=== PATIENT | female | born 1975 | race Caucasian/White ===

== ENCOUNTER 2025-05-03 10:42 | Emergency (ER) | payer BC, SELFPAY ==
[2025-05-03] VITALS (10 sets, daily range): BP systolic 130–161; BP diastolic 75–97; PULSE 65–80; RESP 15–19; TEMP 36.6; O2SAT 98–100
[2025-05-03] MEDS: FAMOTIDINE 20 MG/2 ML VIAL IV PUSH (10:59)
[2025-05-03] MEDS: EPINEPHrine HCL INJ 1 MG/ML AMPUL 0.3 MG IM (11:03)
[2025-05-03] MEDS: SODIUM CHLORIDE 0.9% IV 100 ML 400 ML (11:05)
--- OUTSIDE RECORDS SUMMARY | 2025-05-03 11:42 | XMS_ITS | Clinical Summary ---
Author Organization [facility] Address [address] [address] Phone Care Team Providers Care Group Director Name Role Phone Chloe Hyatt MD Primary Care Provider [phone] Allergies Active Allergy Reactions Criticality Noted Date Comments Sulfanilamide Hives Medium Medications levothyroxine (SYNTHROID) 75 mcg tabletIndications:A cquired hypothyroidism Take 1 tablet (75 mcg total) by mouth daily 90 tablet 1 5 05/16/20 25 Active Active Problems Problem Noted Date Diagnosed Date Encounter for screening for malignant neoplasm o f colon 07/14/2023 Elevated lipoprotein(a) 11/13/2020 Overview (11/13/2020): 2019 CAC = 0 Assessment & Plan (11/13/2020 10:38 AM CDT): LPa 104 with family hx premature coronary artery disease in her father. She does not want to take statins. She will change to as close to a vegan diet as she can manage. Recheck lipids 3 months. Vitamin D insufficiency 10/30/2019 Assessment & Plan (11/13/2020 10:34 AM CDT): Check Vitamin D level on current child's supplement dose. Assessment & Plan (10/30/2019 7:29 AM CDT): Check vitamin-D on her current supplement level. Routine general medical exam ination at a [facility] care facility 12/16/2016 Assessment & Plan (11/13/2020 10:34 AM CDT): Reviewed previous labs and diagnostic test results. Chronic medical problems evaluated and management plans discussed with patient. Prescription medications, supplements, vitamins and immunizations reviewed. Discussed healthy diet for disease prevention. Recommended moving towards a plant based diet. Limit alcohol to no more than 7 drinks per week. Discussed importance of scheduling recommended screening tests. Discussed importance of regular physical examinations for health maintenance. Assessment & Plan (10/30/2019 7:24 AM CDT): ASCVD 10 year risk very low at 0.4% Reviewed previous labs and diagnostic test results. Chronic medical problems evaluated and management plans discussed with patient. Prescription medications, supplements, vitamins and immunizations reviewed. Wear seatbelts. Use sunscreen. Discussed healthy diet for disease prevention. Recommended moving towards a plant based diet. Limit alcohol to no more than 1 drink per day. Discussed importance of scheduling recommended screening tests. Discussed importance of regular physical examinations for health maintenance. Assessment & Plan (02/15/2018 6:49 AM CDT): patient presents for annual exam ekg noted labs pending get copy of living will to pcp encourage annual wwe mammogram and every other year dexa encourage follow gi for scheduled colonoscopy and egd if indicated encourage annual eye exam and dental minimum 2 times year encourage balance nutrition utilizing platemethod.gov and exercise 5 days a week. See orders Assessment & Plan (12/22/2016 7:43 AM CDT): patient presents for annual exam ekg noted labs pending get copy of living will to pcp encourage annual wwe mammogram and every other year dexa encourage follow gi for scheduled colonoscopy and egd if indicated encourage annual eye exam and dental minimum 2 times year encourage balance nutrition utilizing platemethod.gov and exercise 5 days a week. Family history of heart disease 12/16/2016 Overview (10/30/2019): Father fatal mi 67 yo. [place] in his 50s Mother fatal mi 66 yo mgf fatal mi age 35 yo Assessment & Plan (10/30/2019 7:48 AM CDT): Check LPa. Assessment & Plan (02/02/2018 10:42 AM CDT): Father fatal mi 67 yo Mother fatal mi 66 yo mgf fatal mi age 35 yo Assessment & Plan (12/16/2016 11:34 AM CDT): BMI Follow-up includes: nutrition counseling, exercise counseling and education provided. ekg stable Reviewed all diagnostics surgery referrals laboratory Answer all questions Hypothyroidism 12/12/2015 Overview (08/20/2016): Hypothyroidism, unspecified type Assessment & Plan (02/15/2025 9:12 AM CDT): Chronic, stable. Currently on Synthroid 75 mcg tab daily Repeat TSH level due today Continue current dosage until lab returns Orders: levothyroxine (SYNTHROID) 75 mcg tablet; Take 1 tablet (75 mcg total) by mouth daily TSH; Future Assessment & Plan (10/30/2019 7:23 AM CDT): Clinically euthyroid. Continue current levothyroxine dose. Check TSH today. Assessment & Plan (02/15/2018 6:49 AM CDT): Continue current medical management Education to stop medication can contribute to serious consequences and subsequent health issues Labs pending Call for change vision tremors fatigue malaise dry skin or mood swing See orders Assessment & Plan (12/22/2016 7:44 AM CDT): Continue current medical management Education to stop medication can contribute to serious consequences and subsequent health issues Labs pending Call for change vision tremors fatigue malaise dry skin or mood swing Resolved Problems Problem Noted Date Diagnosed Date Resolved Date Vegan diet 07/07/2023 02/15/2025 Palpitations 11/13/2020 07/03/2022 Assessment & Plan (11/13/2020 10:55 AM CDT): Occasional palpitation. EKG today shows sinus bradycardia no ectopics. Discussed that more than 2 alcoholic beverages per day is a trigger for palpitations. History of abnormal cervical Pap smear 02/02/2018 10/30/2019 Overview (02/02/2018): Dr Afshin BLAIR 2014 negative Assessment & Plan (02/15/2018 6:49 AM CDT): Reviewed all diagnostics surgery referrals laboratory Answer all questions Fu Dr Pepe BMI 23.0-23.9, adult 12/16/2016 023 Assessment & Plan (11/13/2020 10:18 AM CDT): BMI Follow-up includes: nutrition counseling, exercise counseling and education provided. Assessment & Plan (10/30/2019 7:30 AM CDT): BMI Follow-up includes: nutrition counseling, exercise counseling and education provided. Assessment & Plan (02/15/2018 6:49 AM CDT): BMI Follow-up includes: nutrition counseling, exercise counseling and education provided. Assessment & Plan (12/16/2016 11:22 AM CDT): BMI Follow-up includes: nutrition counseling, exercise counseling and education provided. Family history of breast can cer gene mutation in first degree relative 12/16/2016 02/02/2018 Assessment & Plan (12/16/2016 11:32 AM CDT): Sister chek2 age 47 yo Reviewed all diagnostics surgery referrals laboratory Answer all questions sbe today Benign cyst of breast 12/12/20152019 Overview (08/20/2016): Benign breast cyst in female, right Assessment & Plan (02/15/2018 6:49 AM CDT): Reviewed all diagnostics surgery referrals laboratory Answer all questions sbe today Assessment & Plan (12/22/2016 7:44 AM CDT): sbe Education for frequent sbe Mammogram annual and prn if needed Impacted cerumen 06/13/2012 02/02/2018 Overview (08/20/2016): Impacted cerumen Atopic rhinitis 06/13/2012 10/30/2019 Overview (08/20/2016): Allergic rhinitis, cause unspecified Assessment & Plan (02/15/2018 6:48 AM CDT): use nasal saline agressively q4h take otc antihistamine for symptomatic days. Use nasal steroid daily for prevention and use analgesic for comfort rx sent to pharmacy education for risk benefits side affects if no improvement or exacerbation return ov or call See orders Assessment & Plan (12/22/2016 7:45 AM CDT): cool mist humidifer in bedroom hs use nasal saline agressively q4h take otc antihistamine, nasal steroid and analgesic for comfort rx sent to pharmacy education for risk benefits side affects if no improvement or exacerbation return ov or call Constipation 06/13/2012 02/15/2025 Overview (08/21/2016): Unspecified constipation Assessment & Plan (10/30/2019 7:53 AM CDT): Managed with increased fluid intake and fiber Assessment & Plan (02/15/2018 6:48 AM CDT): Increase water hydration, fruits, vegetables walking. use otc miralax nightly hold for diarrhea. report any changes bleeding pain po intolerance if no improvement consult gi See orders Assessment & Plan (12/22/2016 7:44 AM CDT): Increase water hydration, fruits, vegetables walking. use otc miralax nightly hold for diarrhea. report any changes bleeding pain po intolerance if no improvement consult gi Encounters Date Type Department Care Team Description 02/15/2025 8:30 AM CDT Office Visit [facility] Primary Care at [address] [id number] Chloe Hyatt MD Annual physical exam (Primary Dx); Acquired hypothyroidism; Need for hepatitis B screening test; Vitamin D insufficiency 02/01/2025 Results Follow-Up [facility] Care at [address] [id number] Chloe Hyatt MD Screening Mammogram Bilateral W Artie from Last 3 Months Immunizations Immunization Administration Dates Next Due Influenza, Quadrivalent, Spl it, Preservative Free, Intramuscular 04/23/2021 Influenza, Trivalent, High D ose, Split, Preservative Free, Intramuscular 02/14/2014 Influenza, Trivalent, IM (MDV) 03/08/2012 Influenza, Trivalent, Preser vative Free, Intramuscular 03/13/2024 Pfizer SARS-CoV-2 Monovalent Vaccination (12+ Yrs) PURPLE 09/03/2020,08/13/2020 Tdap 06/14/2020,06/14/2010,05/27/2010 Surgical History Surgery Date Site/Laterality Comments BREAST BIOPSY 05/17/1999 - 05/16/2000 Breast biopsy CERVICAL BIOPSY W/ LOOP ELECTRODE EXCISION WISDOM TOOTH EXTRACTION BREAST BIOPSY benign BREAST BIOPSY 10/09/2015 Right COLONOSCOPY 11/02/2023 Medical History Medical History Date Comments Genetic screening 10/2017 negative for m utation for breast cancer Hypothyroid Abnormal Pap smear of cervix Breast cyst Constipation Allergic rhinitis Agatston coronary artery lidia cium score less than 100 12/2019 coronary calcium score = 0 Family History Medical History Relation Name Comments Diabetes Father Gout Father Heart attack Father Heart attack Maternal Grandfather Thrombosis Maternal Grandmother Atrial fibrillation Mother Coronary artery disease Mother Nadege nary artery disease; Heart attack Mother Hyperlipidemia Mother Hyperlipidemi a; Hypertension Mother Hypertension; Hypothyroidism Mother Hypothyroidis m; Osteoporosis Mother Osteoporosis; Pulmonary fibrosis Paternal Grandfather Breast cancer Paternal Grandmother Hypothyroidism Sister 1 Hypothyroidis m; Breast cancer Sister 2 Relation Name Status Comments Father Maternal Grandfather Maternal Grandmother Mother Paternal Grandfather Paternal Grandmother Sister 1 Alive Sister 2 Social History Tobacco Use Types Packs/Day Years Used Date Smoking Tobacco: Former Cigarettes 1 5 1 997 - 2001 Smokeless Tobacco: Never Tobacco Cessation:Counseling Given: Not Answered Comments:Smoking History Packs/day: 1 Packs Alcohol Use Standard Drinks/Week Comments Yes 4 (1 standard drink = 0.6 oz pur e alcohol) 8 glasses wine PHQ-2 Answer Date Recorded PHQ-2 Total Score (If total score is 3 or more points, staff should administer the PHQ-9) 0 02/15/2025 PHQ-9 Answer Date Recorded PHQ-9 Total Score 1 02/15/2025 AUDIT-C Answer Date Recorded Q1: How often do you have a drink containing alcohol? 4 or more times a week 02/15/2025 Q2: How many drinks containi ng alcohol do you have on a typical day when you are drinking? 1 or 2 Q3: How often do you have si x or more drinks on one occasion? Monthly 02/15/2025 Personal Safety Answer Date Recorded Have you ever been in or are you currently in a harmful physical or emotional relationship or is someone making you feel afraid or unsafe? 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 on file Not on file Not on file Obstetrics History Para Term AB IAB SAB Ectopic Multiple Livin g Live Births 2 2 Date Outcome GA Total Labor Labor/2nd/3rd Weight Sex Type Anes PTL Bibi A1 A5 Name Clin Last Filed Vital Signs Vital Sign Reading Time Taken Comments Blood Pressure 110/76 02/15/2025 8:37 AM CDT Pulse 72 02/15/2025 8:37 AM CDT Temperature 36.6 C (97.8 F) 02/15/2025 8:37 AM CDT Respiratory Rate 16 02/15/2025 8:37 AM CDT Oxygen Saturation 97% 02/15/2025 8:37 AM CDT Inhaled Oxygen Concentration - - Weight 62.2 kg (137 lb 1.6 oz) 02/15/2025 8:37 A M CDT Height 161.9 cm (5' 3.75) 02/15/2025 8:37 AM CD T Body Mass Index 23.72 02/15/2025 8:37 AM CDT Plan of Treatment Health Maintenance Due Date Last Done Comments Hepatitis B Screening 08/21/1993 Covid-19 Vaccine ( season) 2025 03/13/2024, 04/23/2021, 09/03/2020, Additional history exists Influenza Vaccine (#1) 2025 , 04/23/2021, 02/14/2014, Additional history exists Breast Cancer Screening-Mammogram 01/30/2026 01/30/2025, 10/14/2023, 10/14/2023, Additional history exists Depression Screening 02/15/2026 02/15/2025, 02/15/2025, 07/07/2023, Additional history exists Regular Well Visit/Exam 18-64 02/15/2026 02/15/2025, 07/07/2023, 07/03/2022, Additional history exists Cervical Cancer Screening 08/16/20272024, 11/08/2020, 07/06/2019, Additional history exists DTaP/Tdap/Td Vaccine (4 - Td or Tdap) 06/14/2030 06/14/2020, 06/14/2010, 05/27/2010 Colon Cancer Screening-Colonoscopy 11/01/2033 11/02/2023 Hepatitis C Screening Completed 07/07/2023 Pneumococcal vaccine <65 Aged Out No longer eligible based on patient's age to complete this topic Procedures Procedure Name Priority Date/Time Associated Diagnosis Comments SCREENING MAMMOGRAM BILATERAL W ARTIE Schedule Routine, Read Routine (OP Routine) 01/30/2025 5:51 PM CDT Screening mammogram, encounter for COLONOSCOPY 11/02/2023 11:59 AM CDT HEPATITIS C ANTIBODY Routine 07/07/2023 8:17 AM PRESS [employer]ER BROOMC[employer] Routine physical examination Encounter for hepatitis C screening test for low risk patient PAP AND HIGH RISK HPV, REFLEX TO GENOTYPING Routine 11/08/2020 from Last 3 Months or Most Recently Relevant to Health Maintenance Results * Screening Mammogram Bilateral W Artie (01/30/2025 5:51 PM CDT) Anatomical Region Laterality Modality Breast Bilateral Mammography Impressions 02/01/2025 4:45 PM CDT Bilateral No evidence of malignancy in either breast. OVERALL BI-RADS FINAL ASSESSMENT: 1 - Negative RECOMMENDATION: Recommend bilateral annual screening mammography. Consider supplemental screening with breast MRI every 1-2 years given extremely dense breast tissue. If breast MRI cannot be performed, consider contrast-enhanced mammography as an alternative. Narrative 02/01/2025 4:45 PM CDT EXAMINATION: Screening Mammogram Bilateral W Artie: 01/30/2025 COMPARISON: Relevant prior studies available at the time of interpretation were reviewed, including the most recent mammogram on: 10/14/2023. TECHNIQUE: Mammography was performed with 2D and 3D digital breast tomosynthesis (DBT) images. CAD was utilized. BREAST PARENCHYMAL COMPOSITION: The breasts are extremely dense, which lowers the sensitivity of mammography. FINDINGS: Bilateral There is no suspicious mass, calcification, or architectural distortion in either breast.There is a biopsy marker clip in the right breast. us Self Screening Mammogram IMG MAMMO PROCEDURES Fi nal Result * Colonoscopy (11/02/2023 11:59 AM CDT) Anatomical Region Laterality Modality Other Narrative Procedure Note Lonnie Carrasco MD - 11/02/2023 11:59 AM CDT [facility] Endoscopy Lab Patient Name: Cher Head Procedure Date: 11/02/2023 11:59 AM Date of : 1975 Admit Type: Outpatient Age: 48 Gender: Female Note Status: Finalized Attending MD: Lonnie Carrasco M.D. Procedure Date: 11/02/2023 Procedure: Colonoscopy Indications: Screening for colorectal malignant neoplasm Providers: Lonnie Carrasco M.D., Constance Almaguer CRNA (Anesthesia Staff), Jumana Flores RN, David, Plant Engineer Referring MD: Anabell Butts M.D. Medicines: Monitored Anesthesia Care Complications: No immediate complications. Estimated Blood Loss: Estimated blood loss: none. Procedure: Pre-Anesthesia Assessment: - Prior to the procedure, a History and Physicalwas performed, and patient medications and allergieswere reviewed. The patient is competent. The risks and benefits of the procedure and the sedation optionsand risks were discussed with the patient. Allquestions were answered and informed consent was obtained. Patient identification and proposed procedure were verified by the physician in the pre-procedurearea. Mental Status Examination: alert and oriented.Airway Examination: normal oropharyngeal airway and neck mobility. Respiratory Examination: clear to auscultation. CV Examination: normal. Prophylactic Antibiotics: The patient does not requireprophylactic antibiotics. Prior Anticoagulants: The patient has taken no anticoagulant or antiplatelet agents. ASA Grade Assessment: II - A patient with mild systemic disease. After reviewing the risks and benefits,the patient was deemed in satisfactory condition to undergo the procedure. The anesthesia plan was touse monitored anesthesia care (MAC). Immediately priorto administration of medications, the patient was re-assessed for adequacy to receive sedatives. The heart rate, respiratory rate, oxygen saturations, blood pressure, adequacy of pulmonary ventilation,and response to care were monitored throughout the procedure. The physical status of the patient was re-assessed after the procedure. - The risks and benefits of the procedure and the sedation options and risks were discussed with the patient. All questions were answered and informed consent was obtained. After I obtained informed consent, the scope was passed under direct vision. Throughout theprocedure, the patient's blood pressure, pulse, and oxygen saturations were monitored continuously. The scopewas passed under direct vision. The Colonoscope was introduced through the anus and advanced to the the cecum, identified by appendiceal orifice andileocecal valve. The colonoscopy was performed without difficulty. The patient tolerated the procedurewell. The quality of the bowel preparation was fair. The ileocecal valve, appendiceal orifice, and rectumwere photographed. The bowel preparation used wasGoLYTELY via split dose instruction. Findings: The entire examined colon appeared normal. Impression: - Preparation of the colon was fair. Few seeds and stool debris remaining - The entire examined colon is normal. May have afew sigmoid diverticula - No specimens collected. Recommendation: - Repeat colonoscopy in 10 years forsurveillance. - f/u sooner if any symptoms occur for examplechange in bowel habits, blood per rectum. Procedure Code(s): --- Professional --- 15014, Colonoscopy, flexible; diagnostic, including collection of specimen(s) by brushing or washing,when performed (separate procedure) Diagnosis Code(s): --- Professional --- Z12.11, Encounter for screening for malignantneoplasm of colon CPT copyright 2020 [employer]. All rights reserved. The codes documented in this report are preliminary and upon transport rn reviewmay be revised to meet current compliance requirements. Dr. Lonnie Carrasco MD Lonnie Carrasco M.D. 11/02/2023 12:20:20 PM This report has been electronically signed by the physician. Number of Addenda: 0 Note Initiated On: 11/02/2023 11:59 AM us Lonnie Carrasco MD ENDOSCOPY PROCEDURES Final Resul t * Hepatitis C antibody Blood (07/07/2023 8:17 AM PRESS FEEDER BROOMCORN) Hep C Ab Nonreactive Nonreactive RONAL JENNINGS Comment: Interpretive Data Nonreactive: Antibodies to HCV not detected. Does NOT exclude the possibility of recent exposure to HCV. Equivocal: Equivocal for HCV antibodies. Supplemental molecular testing will be automatically performed to determine infection status in accordance with current CDC screening recommendations. Reactive: Positive for HCV antibodies. This may represent current or past HCV infection. Supplemental molecular testing will be automatically performed to determine current infection status in accordance with current CDC screening recommendations. Interpretive data was last revised on 2019. Blood 07/07/2023 8:17 AM PRESS FE[employer]ER BROOMCORN 07/07/2023 1:50 PM PRESS FE[employer]ER [employer] Anabell Butts MD LAB MICROBIOLOGY - GEN ERAL ORDERABLES Final Result Performing Organization Address City/State/ZIP [place] Phone Number R[facility] [phone] [place] [address] * Pap and High Risk HPV, reflex to Genotyping (11/08/2020) Swab 11/08/2020 Historical Provider LAB CYTOLOGY ORDERABLES F inal Result from Last 3 Months or Most Recently Relevant to Health Maintenance Insurance 9SLIDES OOS 9SLIDES OOS Member Subscriber Plan / Payer (Ef fective 2022-Present) Name:Cher Anderson Member ID:[id number] Relation to Subscriber:Spouse Name:HEADJAN Subscriber ID:[id number] Date of :1899 (Home) Address: [address] [place] [address] [place] [address] Payer ID:[id number] (NAIC) Type:BC ALLIANCE Address: [facility] [address] [place] [id number] Care Teams Group Director Relationship Specialty Start Date End Date Chloe Hyatt MD [address] [address] PCP - General Family Medicine 02/15/25
--- OUTSIDE RECORDS SUMMARY | 2025-05-03 11:42 | XMS_ITS | Clinical Summary ---
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 Gender Identity Not on file Sexual Orientation Not on file Plan of Treatment Health Maintenance Due Date Last Done Comments Hepatitis C Virus (HCV) Screening 1975 TdaP Immunization 1975 Hepatitis B Immunization (1 of 3 - 19+ 3-dose series) 08/21/1994 Pap Smear 08/21/1996 Cervical Cancer Screening (CCS) 08/21/2005 HPV/Cotest 08/21/2005 Cologuard 08/21/2020 Colonoscopy 08/21/2020 Colorectal Cancer Screening 08/21/2020 Immunochemical Fecal Occult Blood 08/21/2020 Influenza Immunization (#1) 2025 04/23/2021 SARS-COV-2 Immunization ( season) 2025 04/23/2021, 09/03/2020, 08/13/2020 Respiratory Syncytial Virus (RSV) Immunization (Adult) (1 - 1-dose 75+ series) 08/21/2050 Human Papillomavirus (HPV) Immunization Aged Out No longer eligible b ased on patient's age to complete this topic Meningococcal Immunization (ACWY) Aged Out No longer eligible b ased on patient's age to complete this topic Pneumococcal Immunization Combined Aged Out No longer eligible b ased on patient's age to complete this topic Rotavirus Immunization Aged Out No lo nger eligible based on patient's age to complete this topic
--- OUTSIDE RECORDS SUMMARY | 2025-05-03 11:42 | XMS_ITS | Clinical Summary ---
Author Organization [facility] Address [address] [place] [address] Care Team Providers Care Manager Sales Training Name Role Phone Bryant Herrera MD Primary Care Provider [phone] Source Comments [facility],non-owned Affiliates and Associated Physician Practices is amultiple site organization consisting of ambulatory clinics and hospital sitesin [place], [place], [place] and [place]. This disclosure is being madepursuant to the Care Everywhere program and may not contain all information available regarding this patient. Last updated 18.[facility] Allergies Active Allergy Reactions Criticality Noted Date Comments Sulfa Drugs 06/12/2010 Medications * Be aware that medications may not be up to date on this document. Alwaysverify current medications with the patient. levothyroxine (SYNTHROID) 75 MCG tablet Take 1 Tab by mouth once daily 09/09/2016 Active Immunizations Immunization Administration Dates Next Due TDAP (7yrs+) 06/14/2010 Social History Tobacco Use Types Packs/Day Years Used Date Smoking Tobacco: Former Smokeless Tobacco: Never Tobacco Cessation:Counseling Given: Not Answered Alcohol Use Standard Drinks/Week Comments No 0 (1 standard drink = 0.6 oz pur e alcohol) PHQ-2 Answer Date Recorded Patient Health Questionnaire-2 Score 0 08/14/2024 Comments No Sex and Gender Information Value Date Recorded Sex Assigned at Not on file Legal Sex Female 6:37 AM CARPET INSTALLER Gender Identity Not on file Sexual Orientation Not on file Last Filed Vital Signs Vital Sign Reading Time Taken Comments Blood Pressure 120/89 08/14/2024 9:45 AM CDT Pulse 60 06/14/2010 7:00 AM CARPET INSTALLER Temperature 36.5 C (97.7 F) 06/14/2010 7:00 AM CARPET INSTALLER Respiratory Rate 18 06/14/2010 7:00 AM CARPET INSTALLER Oxygen Saturation 97% 06/13/2010 8:02 AM CARPET INSTALLER Inhaled Oxygen Concentration - - Weight 61.7 kg (136 lb) 08/14/2024 9:45 AM CDT Height 160 cm (5' 3) 08/14/2024 9:45 AM CDT Body Mass Index 24.09 08/14/2024 9:45 AM CDT Plan of Treatment Health Maintenance Due Date Last Done Comments COLOGUARD (AGES 45-75) - COLON CA SCREENING 1975 CT COLONOGRAPHY - COLON CA SCREENING 1975 FIT - COLON CA SCREENING 1975 FLEX SIG - COLON CA SCREENING 1975 LIPID TESTING 1975 HIV SCREENING 08/21/1990 HEPATITIS C SCREENING 08/17/1993 HEPATITIS B VACCINE (1 of 3 - 19+ 3-dose series) 08/21/1994 DTAP/TDAP/TD VACCINES (2 - Td or Tdap) 06/14/2020 06/14/2010 COVID-19 VACCINE ( - season) 2025 04/23/2021, 09/03/2020, 08/13/2020 INFLUENZA VACCINE (#1) 2025 , 02/14/2014, 03/08/2012 ZOSTER VACCINE (1 of 2) 08/21/2025 MAMMOGRAM 01/30/2026 01/30/2025, 09/16, 10/14/2023, Additional history exists PAP with HPV 08/14/2029 08/14/2024, 04/16, 11/08/2020, Additional history exists COLON MONITORING 11/01/2033 11/02/2023 COLONOSCOPY - COLON CA SCREENING 11/01/2033 11/02/2023 Colorectal Cancer Screening 11/01/2033 DEPRESSION SCREENING Completed 08/14/2024 HIB VACCINE Aged Out No longer eligi ble based on patient's age to complete this topic HPV VACCINE Aged Out No longer eligi ble based on patient's age to complete this topic MENINGOCOCCAL (Group B) VACCINE SHARED DECISION-MAKING Aged Out No longer eligible based on patient's age to complete this topic MENINGOCOCCAL GROUPS A/C/Y/W VACCINE Aged Out No longer eligible based on patient's age to complete this topic Procedures Procedure Name Priority Date/Time Associated Diagnosis Comments MAMMOGRAM 01/30/2025 PAP IG LB+HPV APTIMA Routine 08/14/2024 11:21 AM CDT Well woman exam with routine gynecological exam from Last 3 Months or Most Recently Relevant to Health Maintenance Results * MAMMOGRAM (01/30/2025) Anatomical Region Laterality Modality Other 01/30/2025 Narrative 01/30/2025 Ordered by an unspecified provider. us Scanned Document SCANNING ONLY Final Result * PAP IG LB+HPV APTIMA (08/14/2024 11:21 AM CDT) Diagnosis Comment [facility] ACCOUNT BILL Comment:NEGATIVE FOR INTRAEP ITHELIAL LESION OR MALIGNANCY. Specimen Adequacy Comment [facility] ACCOUNT BILL Comment: Satisfactory for evaluation. Endocervical and/or squamous metaplastic cells (endocervical component) are present. Clinician Provided ICD10 Comment [facility] ACCOUNT BILL Comment:Z01.419 Performed by Comment [facility] ACCOUNT BILL Comment:Margie Tran, Cyto technologist (ASCP) Comment . [facility] ACCOUNT BILL Note Comment [facility] ACCOUNT BILL Comment: The Pap smear is a screening test designed to aid in the detection of premalignant and malignant conditions of the uterine cervix. It is not a diagnostic procedure and should not be used as the sole means of detecting cervical cancer. Both false-positive and false-negative reports do occur. IGLBP CPT Code Automation Comment [facility] ACCOUNT BILL Comment: This liquid based ThinPrep(R) pap test was screened with the use of an image guided system. Human papillomavirus Aptima Negative Negative [facility] ACCOUNT BILL Comment: This nucleic acid amplification test detects fourteen high-risk HPV types (16,18,31,33,35,39,45,51,52,56,58,59,66,68) without differentiation. Pathology/Cytolog y PART OF UTERINE CERVIX / Unknown 08/14/2024 11:21 AM CDT 08/14/2024 Comment:Cervix Release to pa brittnee Narrative [facility] ACCOUNT BILL - 08/16/2024 9:10 AM CDT Performed at: 01 - [facility] [address] [id number] Video Production Intern: Niurka Barreto MD, Phone: [phone] Performed at: 02 - [facility] [address] [id number] Video Production Intern: Niurka Barreto MD, Phone: [phone] Specimen Comment: [id number] Specimen Comment: No. of containers..01 ThinPrep Vial Yaw Pepe MD LAB - PATHOLOGY/CYTOLOGY OR DERABLES Final Result [facility] ACCOUNT BILL [address] [place] [address] from Last 3 Months or Most Recently Relevant to Health Maintenance Insurance [facility] Care Teams Manager Sales Training Relationship Specialty Start Date End Date Bryant Herrera MD PCP - General Infectious Disease 10/08/16
--- OUTSIDE RECORDS SUMMARY | 2025-05-03 11:42 | XMS_ITS | Clinical Summary ---
Author Organization [facility] [place] Address [address] [place] [address] Phone Care Team Providers Care Hoist Operator Name Role Phone Bryant Garcia MD Primary Care Provider [phone] Allergies Active Allergy Reactions Criticality Noted Date Comments Sulfa (Sulfonamide Antibiotics) Hives High 09/14 Medications levothyroxine 75 mcg tablet 07/27/2015 Active multivitamin (DAILY-ADELA) tablet Take 1 Tablet by mouth daily. Active calcium carbonate (TUMS) 200 mg (500 mg) Tablet, Chewable Take 500 mg by mouth 3 times daily with meals. Active aspirin (ANNABELLA CHEWABLE) 81 mg Tablet, Chewable Take 81 mg by mouth daily. Active Active Problems Patient Care Coordination No te Formatting of this note migh t be different from the original. 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 Is NOT Fibroadenoma 10/25/2015 Overview (10/25/2015): SCLEROTIC FIBROADENOMA right Breast mass, right 10/03/2015 Overview (10/03/2015): On screening mammo. 1.5 cm on US. Benign characteristics but biopsy recommended. 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 11/09/2017 11/25/2017 Family History Medical History Relation Name Comments Cancer Maternal Uncle prostate 60's Cancer Paternal Aunt leukemia 50's Breast Cancer Paternal Grandmother unkwn Lung Cancer Paternal Grandmother Breast Cancer Sister 47 chek2+ Relation Name Status Comments Maternal Uncle prostate 60's Alive Paternal Aunt leukemia 50's Alive Paternal Grandmother Sister 47 chek2+ Alive Social History Tobacco Use Types Packs/Day Years Used Date Smoking Tobacco: Former Cigarettes 0 Q uit: 08/02/2001 Alcohol Use Standard Drinks/Week Comments Not Asked 0 (1 standard drink = 0.6 oz pur e alcohol) Comments No Sex and Gender Information Value Date Recorded Sex Assigned at Not on file Legal Sex Female 10:14 AM CDT Gender Identity Not on file Sexual Orientation Not on file Last Filed Vital Signs Vital Sign Reading Time Taken Comments Blood Pressure 122/74 11/09/2017 12:25 PM CDT Pulse 72 10/03/2015 1:28 PM CDT Temperature 36.6 C (97.9 F) 10/03/2015 1:28 PM CDT Respiratory Rate - - Oxygen Saturation - - Inhaled Oxygen Concentration - - Weight 56.7 kg (125 lb) 11/09/2017 12:25 PM CDT Height 160 cm (5' 3) 11/09/2017 12:25 PM CDT Body Mass Index 22.14 11/09/2017 12:25 PM CDT Plan of Treatment Health Maintenance Due Date Last Done Comments HEPATITIS B VACCINES (1 of 3 - 19+ 3-dose series) 08/21/1994 HPV/Cotest (21-29) 08/21/1996 HPV/Cotest (30-65) 08/21/2005 COLORECTAL SCREENING 08/21/2020 Colorectal Cancer Screening 08/21/2020 FIT-DNA Q 3 years 08/21/2020 FIT/FOBT Q 1 year 08/21/2020 Flex Sig/CT Colonography Q 5 years 08/21/2020 CERVICAL CANCER SCREENING 07/11/2022 PAP SMEAR 07/11/2022 07/11/2019, 07/01/2018 BREAST CANCER SCREENING 10/13/2024 10/14/19 24, 06/20/2022, 06/10/2021, Additional history exists INFLUENZA VACCINE (#1) 2024 , 02/14/2014, 03/08/2012 COVID-19 Vaccine (2024-2 6 season) 2025 09/03/2020, 08/13/2020 DTAP/TDAP/TD VACCINES (4 - T d or Tdap) 06/14/2030 06/14/2020, 06/14/2010, 05/27/2010 Procedures Procedure Name Priority Date/Time Associated Diagnosis Comments MAMMO 3D MARTIN SCREEN BILAT W OR WO CAD Routine 10/14/2023 5:04 PM CDT Visit for screening mammogram from Last 3 Months or Most Recently Relevant to Health Maintenance Results * MAMMO 3D MARTIN SCREEN BILAT W OR WO CAD (10/14/2023 5:04 PM CDT) Anatomical Region Laterality Modality Breast Bilateral Mammography 10/14/2023 5:04 PM CDT Impressions 10/15/2023 8:11 AM CDT FINDINGS/IMPRESSION: No suspicious mass, suspicious microcalcifications, or architectural distortion in either breast is identified. Since the prior study, there has been no significant interval change. The computer aided diagnosis detects no significant abnormality. OVERALL FINAL ASSESSMENT: BI-RADS CATEGORY 1 : Negative RECOMMENDATIONS: Routine screening mammogram in one year. DICTATION LOCATION: [facility] 10/15/2023 8:11 AM CDT BILATERAL FULL-FIELD DIGITAL SCREENING MAMMOGRAM WITH CAD WITH 3D TOMOSYNTHESIS DATE: 10/14/2023 5:04 PM HISTORY: Routine screening. TECHNIQUE: Full-field digital craniocaudal and mediolateral oblique projections of both breasts were obtained. Low-dose full-field digital breast tomosynthesis examination was performed with 2D and 3D acquisitions. Examination is read in conjunction with computer aided detection. COMPARISON: [id number] BREAST COMPOSITION: The breasts are extremely dense, which lowers the sensitivity of mammography. Procedure Note Mayrlou Jacome MD - 10/15/2023 BILATERAL FULL-FIELD DIGITAL SCREENING MAMMOGRAM WITH CAD WITH 3D TOMOSYNTHESIS DATE: 10/14/2023 5:04 PM HISTORY: Routine screening. TECHNIQUE: Full-field digital craniocaudal and mediolateral oblique projections of both breasts were obtained. Low-dose full-field digital breast tomosynthesis examination was performed with 2D and 3D acquisitions. Examination is read in conjunction with computer aided detection. COMPARISON: BREAST COMPOSITION: The breasts are extremely dense, which lowers the sensitivity of mammography. FINDINGS/IMPRESSION: No suspicious mass, suspicious microcalcifications, or architectural distortion in either breast is identified. Since the prior study, there has been no significant interval change. The computer aided diagnosis detects no significant abnormality. OVERALL FINAL ASSESSMENT: BI-RADS CATEGORY 1 : Negative RECOMMENDATIONS: Routine screening mammogram in one year. DICTATION LOCATION: [facility] Rima Williamson MD MAMMO ORDERABLES Final Result from Last 3 Months or Most Recently Relevant to Health Maintenance Insurance [facility] BLUE ACCESS/TRUE BLUE PPO Care Teams Hoist Operator Relationship Specialty Start Date End Date Bryant Garcia MD [address] [place] [address] PCP - General Internal Medicine 11/23/16
--- OUTSIDE RECORDS SUMMARY | 2025-05-03 13:07 | XMS_ITS | Clinical Summary ---
Author Organization [facility] Address [address] [address] Phone Care Team Providers Care Contact Lens Flashing Puncher Name Role Phone Chloe Hyatt MD Primary Care Provider [phone] Allergies Active Allergy Reactions Criticality Noted Date [...] Routine general medical exam ination at a [facility] care facility 12/16/2016 Assessment & Plan (11/13/2020 [...] Overview (10/30/2019): Father fatal mi 67 yo. 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 Procedure Date: 11/02/2023 Procedure: Colonoscopy Indications: Screening for colorectal malignant neoplasm Providers: Lonnie Carrasco M.D., Constance Almaguer CRNA (Anesthesia Staff), Jumana Flores RN, David, Retail Selling Specialist Referring MD: Anabell Butts M.D. Medicines: Monitored [...] per rectum. Procedure Code(s): --- Professional --- 15110, Colonoscopy, flexible; diagnostic, including collection of specimen(s) by brushing or washing,when performed (separate procedure) Diagnosis Code(s): --- Professional --- Z12.11, Encounter for screening for malignantneoplasm of colon CPT copyright 2020 [employer]. All rights reserved. The codes documented in this report are preliminary and upon mold tooler reviewmay be revised to meet current compliance requirements. Dr. Lonnie Carrasco MD Lonnie Carrasco M.D. 11/02/2023 12:20:20 PM This report has been electronically signed by the physician. Number of Addenda: 0 Note Initiated On: 11/02/2023 11:59 AM us Lonnie Carrasco MD ENDOSCOPY PROCEDURES Final Resul t * Hepatitis C antibody Blood (07/07/2023 8:17 AM AUTO BODY REPAIR TEACHER) Hep C Ab Nonreactive Nonreactive RONAL JENNINGS [...] revised on 2019. Blood 07/07/2023 8:17 AM AUTO BODY REPAIR TEACHER 07/07/2023 1:50 PM AUTO BODY REPAIR TEACHER Anabell Butts MD LAB MICROBIOLOGY - GEN ERAL ORDERABLES Final Result Performing Organization Address City/State/ZIP Co al Phone Number RONAL [address] [place] [address] * Pap and High Risk HPV, reflex to Genotyping (11/08/2020) Swab 11/08/2020 Historical Provider LAB CYTOLOGY ORDERABLES F inal Result from Last 3 Months or Most Recently Relevant to Health Maintenance Insurance [email or web address] OOS [email or web address] Member Subscriber Plan / Payer (Ef fective 2022-Present) Name:Cher Anderson Member ID:[id number] Relation to Subscriber:Spouse Name:HEADJAN Subscriber ID:[id number] Date of :1899 (Home) Address: [address] [place] [address] [place] [address] Payer ID:[id number] (NAIC) Type:BC ALLIANCE Address: [facility] [id number] [place] [id number] Care Teams Contact Lens Flashing Puncher Relationship Specialty Start Date End Date Chloe Hyatt MD [address] [address] PCP - General Family Medicine 02/15/25
--- OUTSIDE RECORDS SUMMARY | 2025-05-03 13:07 | XMS_ITS | Clinical Summary ---
Author Organization [facility] [place] Address [address] [place] [address] Phone Care Team Providers Care Certified Adaptive Physical Educator Name Role Phone Bryant Garcia MD Primary Care Provider [phone] Allergies Active Allergy Reactions Criticality Noted Date [...] Pepe MD Referring Provider: Yaw Pepe MD [facility] RV DETAILER & Urogynecology [address] [place] [address] [place] [address] Other: Problem Noted Date Diagnosed Date Family [...] screening mammogram in one year. DICTATION LOCATION: [facility] 10/15/2023 8:11 AM CDT BILATERAL FULL-FIELD DIGITAL SCREENING MAMMOGRAM WITH CAD WITH 3D TOMOSYNTHESIS DATE: 10/14/2023 5:04 PM HISTORY: Routine screening. TECHNIQUE: Full-field digital craniocaudal and mediolateral oblique projections of both breasts were obtained. Low-dose full-field digital breast tomosynthesis examination was performed with 2D and 3D acquisitions. Examination is read in conjunction with computer aided detection. COMPARISON: [id number] BREAST COMPOSITION: The breasts are extremely dense, which lowers the sensitivity of mammography. Procedure Note Marylou Jacome MD - 10/15/2023 BILATERAL FULL-FIELD DIGITAL [...] screening mammogram in one year. DICTATION LOCATION: [facility] Rima Williamson MD MAMMO ORDERABLES Final Result from Last 3 Months or Most Recently Relevant to Health Maintenance Insurance [facility] BLUE ACCESS/TRUE BLUE PPO Care Teams Certified Adaptive Physical Educator Relationship Specialty Start Date End Date Bryant Garcia MD [address] [place] [address] PCP - General Internal Medicine 11/23/16
--- OUTSIDE RECORDS SUMMARY | 2025-05-03 13:07 | XMS_ITS | Clinical Summary ---
Author Organization [facility] Address [address] [place] [address] Care Team Providers Care Alkylation Operator Name Role Phone Unavailable Primary Care Provider Unavailabl e Social History Tobacco Use Types Packs/Day Years Used Date Smoking Tobacco: Never Assessed Comments Unknown Sex and Gender Information Value Date Recorded Sex Assigned at Not on file Legal Sex Female 2:34 PM EYELET MAKER Gender Identity Not on file Sexual Orientation [...]
--- OUTSIDE RECORDS SUMMARY | 2025-05-03 13:07 | XMS_ITS | Clinical Summary ---
Author Organization [facility] Address [address] [place] [address] Care Team Providers Care Kettleman Name Role Phone Bryant Herrera MD Primary Care Provider [phone] Source Comments [facility],non-owned Affiliates and Associated Physician Practices is amultiple site organization consisting of ambulatory clinics and hospital sitesin [place] and [place]. This disclosure is being madepursuant to the Care Everywhere program and may not contain all information available regarding this patient. Last updated 18.[facility] Allergies Active Allergy Reactions Criticality Noted Date [...] on file Legal Sex Female 6:37 AM TOOL AND FIXTURE REPAIRER Gender Identity Not on file Sexual Orientation Not on file Last Filed Vital Signs Vital Sign Reading Time Taken Comments Blood Pressure 120/89 08/14/2024 9:45 AM CDT Pulse 60 06/14/2010 7:00 AM TOOL AND FIXTURE REPAIRER Temperature 36.5 C (97.7 F) 06/14/2010 7:00 AM TOOL AND FIXTURE REPAIRER Respiratory Rate 18 06/14/2010 7:00 AM TOOL AND FIXTURE REPAIRER Oxygen Saturation 97% 06/13/2010 8:02 AM TOOL AND FIXTURE REPAIRER Inhaled Oxygen Concentration - - Weight 61.7 [...] AM CDT Performed at: 01 - [facility] [address] [id number] Hay Baler: Niurka Barreto MD, Phone: [phone] Performed at: 02 - [facility] [address] [id number] Hay Baler: Niurka Barreto MD, Phone: [phone] Specimen Comment: [id number] Specimen Comment: No. of containers..01 ThinPrep Vial Yaw Pepe MD LAB - PATHOLOGY/CYTOLOGY OR DERABLES Final Result [facility] ACCOUNT BILL [address] [place] [address] from Last 3 Months or Most Recently Relevant to Health Maintenance Insurance [facility] Care Teams Kettleman Relationship Specialty Start Date End Date Bryant Herrera MD PCP - General Infectious Disease 10/08/16
--- NOTE | 2025-05-03 18:33 | ED_ITS ---
HPI - Allergic Reaction General Chief complaint: Allergic Reaction Stated complaint: allergic reaction Time Seen by Provider: 05/03/25 10:47 History of Present Illness HPI narrative: Patient is here with possible allergic reaction, she has extreme swelling to her face, mostly around the left eye, also feels like her throat is itchy and she has itching around her ears. Does have history of allergies to sulfa but does not think she ate anything different today, she just had her normal breakfast and ibuprofen Related Data Allergies Allergy/AdvReac Type Severity Reaction Status Date / Time Sulfa (Sulfonamide Allergy Unknown HIVES Verified 05/03/25 11:43 Antibiotics) Review of Systems Review of Systems: All systems reviewed & are unremarkable except as noted in HPI and below Exam Narrative: EXAMINATION OF ORGAN SYSTEMS/BODY AREAS: Constitutional: Vital signs per nursing GENERAL: Appears slightly anxious HEAD: Normal with no signs of head trauma. EYES: Puffiness around both eyes, especially around the left eye ENT: No stridor LUNGS: Nonlabored breathing. Clear to auscultation bilaterally HEART: Regular rate and rhythm ABD: Soft, nontender to palpation EXT: Normal range of motion SKIN: Some rash around the face NEURO: Alert. No gross focal sensory or strength deficits. PSYCH: Normal affect Course Vital Signs Vital signs: Vital Signs Temperature 98 F 05/03/25 10:53 Pulse Rate 72 05/03/25 10:53 Respiratory Rate 18 05/03/25 10:53 Blood Pressure 161/97 H 05/03/25 10:53 Pulse Oximetry 100 05/03/25 10:53 Temperature 98 F 05/03/25 10:53 Pulse Rate 72 05/03/25 12:50 Respiratory Rate 16 05/03/25 12:50 Blood Pressure 130/90 05/03/25 12:50 Pulse Oximetry 98 05/03/25 12:50 Oxygen Delivery Room Air 05/03/25 11:20 [facility] Narrative Medical decision making narrative: Patient presented to the ED with a complaint of [possible allergic reaction]. Vitals [were within acceptable limits]. Physical exam revealed rash with swelling of face. Based on the patient's history and physical exam, my differential includes but is not limited to [allergic reaction, bug bites, contact dermatitis, angioedema]. [Patient was given epinephrine, benadryl, famotidine, steroids]. On re-evaluation, the patient was feeling improved. I did re-evaluate her several times and each time the swelling has improved. Has not had worsening of symptoms here and I do feel she is stable for discharge and will go home with EpiPen, Claritin, famotidine, and prednisone and followup with PCP, return for further issues. Patient verbalizes understanding. Differential Diagnosis Differential Diagnosis: Based on the patient's history and physical exam, my differential includes but is not limited to [allergic reaction, bug bites, contact dermatitis, angioedema]. Discharge Plan Discharge Clinical Impression: Allergic reaction Patient Disposition: Home Condition: Stable Instructions: Anaphylaxis (ED) Additional Instructions: Please follow up with your doctor; if your symptoms return, give yourself the EpiPen immediately and come back to the emergency room. Patient Language: Maltese Prescriptions: New prednisone 20 mg tablet 40 mg PO DAILY 4 Days Qty: 8 0RF famotidine 20 mg tablet 20 mg PO DAILY Qty: 10 0RF epinephrine [EpiPen] 0.3 mg/0.3 mL auto-injector 0.3 mg IM Q5-15M PRN (Reason: anaphylaxis) Qty: 2 0RF Rx Instructions: do not exceed 3 doses per episode loratadine 10 mg tablet 10 mg PO DAILY Qty: 10 0RF Follow-up/Referrals: PHYSICIAN,PET COUNSELOR [Primary Care Provider, Internal Medicine]
== END 2025-05-03 12:50 | disposition home or self-care (01) ==
PROVIDERS: Emergency Provider Emergency Medicine
DX: T78.40XA Allergy, unspecified, initial encounter (principal); X58.XXXA Exposure to other specified factors, initial encounter
CPT/HCPCS: 96372; 96374; 96375; 99284; J0166; J1200; J2919